=== PATIENT | female | born 1980 | race African-American/Black ===

== ENCOUNTER 2017-03-26 17:25 | Inpatient (IN) | payer SELFPAY ==
[~2017-03-26] VITALS: Ht 160 cm; Wt 62.1 kg
[~2017-03-26 17:25] MED LIST: NO MEDS
[2017-03-26] MEDS ORDERED: ONDANSETRON HCL 4MG/2ML VIAL IV STA (17:53)
[2017-03-26] MEDS ORDERED: MORPHINE SULFATE 4 MG/ML CPJ (NOT FOR IM USE) IV STA (17:53)
[2017-03-26] MEDS ORDERED: SODIUM CHLORIDE 0.9% 1,000 ML IV ONE ×2 (17:53→19:31)
[2017-03-26 18:23] LABS: BASOPHILS % 0.3 % (0.0-2.0); EOSINOPHILS % 0.6 % (0.0-5.0); HEMATOCRIT. 42.8 % (36.0-48.0); HEMOGLOBIN. 14.4 g/dL (12.0-16.0); LYMPHOCYTES % 8.9 % (20.0-50.0); MEAN CORPUSCULAR HEMOGLOBIN 31.2 pg (28.0-32.0); MEAN CORPUSCULAR VOLUME 92.7 fL (81.0-99.0); MEAN PLATELET VOLUME 9.2 fl (7.4-10.4); MONOCYTES % 7.4 % (2.0-8.0); NEUTROPHILS % 82.8 % (40.0-76.0); PLATELET 253 x1000/uL (130-400); RED BLOOD CELL COUNT 4.62 mill/uL (4.2-5.4); RED CELL DISTRIBUTION WIDTH 15.4 % (11.6-14.6)
[2017-03-26 18:28] LABS: HCG SCREEN NEGATIVE
[2017-03-26 18:29] LABS: PROTHROMBIN TIME 10.5 sec
[2017-03-26 18:30] LABS: CARBON DIOXIDE 25 mEq/L (21-32); CHLORIDE 104 mEq/L (98-107); ETHANOL BLOOD 20 mg/dL
[2017-03-26] MEDS ORDERED: AZITHROMYCIN 500 MG TABLET PO ONE (19:45)
[2017-03-26] MEDS ORDERED: CEFTRIAXONE SODIUM 250 MG/VIAL IM ONE (19:45)
[2017-03-26] MEDS ORDERED: CEFOXITIN SODIUM 2 G in DEXT 5% WATER 100 ML IV SCH (20:00)
[2017-03-26] MEDS ORDERED: [UNRECOGNIZED DRUG - OTHER] IR NR (20:00)
[2017-03-26] MEDS ORDERED: DOXYCYCLINE 100 MG in DEXT 5% WATER 100 ML IV SCH (20:00)
[2017-03-26] MEDS ORDERED: WATER IR NR (20:00)
[2017-03-26] MEDS ORDERED: STERILE WATER FOR INJECTION 10ML VIAL ONE (20:10)
[2017-03-26] MEDS ORDERED: MORPHINE SULFATE 4 MG/ML CPJ (NOT FOR IM USE) IV ONE (21:30)
[2017-03-26] MEDS ORDERED: ACETAMINOPHEN 325MG TABLET PO PRN (23:30)
[2017-03-26] MEDS ORDERED: HYDROCODONE/ACETAMINOPHEN 5/325MG TABLET PO PRN (23:30)
[2017-03-26 23:52] LABS: CLARITY URINE CLEAR (CLEAR); COLOR URINE YELLOW (YELLOW); GLUCOSE URINE NEGATIVE (NEGATIVE); KETONES URINE TRACE (NEGATIVE); LEUKOCYTE ESTERASE URINE TRACE (NEGATIVE); NITRITE URINE NEGATIVE (NEGATIVE); OCCULT BLOOD URINE NEGATIVE (NEGATIVE); PROTEIN URINE NEGATIVE (NEGATIVE); UROBILINOGEN URINE 0.2 E.U./dL (0.2-1.0)
[2017-03-27 00:02] VITALS: BP 122/73
[2017-03-27 00:09] LABS: *BENZODIAZEPINES SCREEN URINE NEGATIVE (NEGATIVE); METHADONE URINE SCREEN NEGATIVE (NEGATIVE); PHENCYCLIDINE URINE SCREEN NEGATIVE (NEGATIVE)
[2017-03-27 01:32] LABS: *AMPHETAMINES SCREEN URINE PRESUMTIVE POSITIVE (NEGATIVE); *BARBITURATES SCREEN URINE PRESUMTIVE POSITIVE (NEGATIVE); *COCAINE SCREEN URINE PRESUMTIVE POSITIVE (NEGATIVE); CANNABINOID URINE SCREEN PRESUMTIVE POSITIVE (NEGATIVE); OPIATES URINE SCREEN PRESUMTIVE POSITIVE (NEGATIVE)
[2017-03-27 04:00] VITALS: BP 125/65
[2017-03-27 06:25] LABS: HEMATOCRIT. 37.3 % (36.0-48.0); HEMOGLOBIN. 12.6 g/dL (12.0-16.0); MEAN CORPUSCULAR HEMOGLOBIN 30.8 pg (28.0-32.0); MEAN CORPUSCULAR VOLUME 91.2 fL (81.0-99.0); MEAN PLATELET VOLUME 7.7 fl (7.4-10.4); PLATELET 182 x1000/uL (130-400); RED BLOOD CELL COUNT 4.09 mill/uL (4.2-5.4); RED CELL DISTRIBUTION WIDTH 15.2 % (11.6-14.6)
[2017-03-27 07:45] LABS: PLATELET ESTIMATE NORMAL
[2017-03-27 08:00] VITALS: BP 145/92
[2017-03-27] MEDS: ONDANSETRON HCL 4MG/2ML VIAL IV PRN ×2 (08:26→13:23)
[2017-03-27] MEDS: IBUPROFEN 600MG TABLET PO SCH ×2 (08:26→13:24)
[2017-03-27] MEDS ORDERED: DOXYCYCLINE 100MG in DEXTROSE 5% WATER 100ML IV SCH (09:00)
[2017-03-27 12:00] VITALS: BP 128/88
[2017-03-27 16:00] VITALS: BP 121/78
[2017-03-30 09:07] LABS: CHLAMYDIA TRACHOMATIS NAA Negative (Negative)
[2017-03-31 04:15] LABS: NEISSERIA GONORRHOEAE NAA Positive (Negative)
== END 2017-03-27 17:30 | disposition left against medical advice (07) | DRG 531 ==
LOC: ER 17:26 → 6WST 22:13
PROVIDERS: ADMIT Specialist; ATTEND Specialist
DX: N70.93 Salpingitis and oophoritis, unspecified (principal); F17.200 Nicotine dependence, unspecified, uncomplicated; N73.9 Female pelvic inflammatory disease, unspecified; N70.11 Chronic salpingitis; N89.8 Other specified noninflammatory disorders of vagina; Z53.21 Procedure and treatment not carried out due to patient leaving prior to being seen by health care provider
CPT/HCPCS: 36415; 71010; 74176; 76856; 80053; 80305; 81001; 83605; 83690; 84703; 85025; 85610; 86850; 86900; 87040; 87070; 87077; 87186; 87210; 87491; 87591; 96365; 96375; 96376; 99285; A4216; G0482; J0694; J0696; J2270; J2405; J3490; J7030; J7040; J7060

== ENCOUNTER 2025-08-28 14:34 | Emergency (ER) | payer MEDICAID ==
[~2025-08-28] VITALS: Ht 160 cm; Wt 47.0 kg
[2025-08-28 14:51] VITALS: O2SAT 100
[2025-08-28] MEDS: TETANUS, DIPHTHERIA, PERTUSSIS VAC/PF 0.5ML (>10YR OLD) IM ONE (16:00)
[2025-08-28] MEDS: ACETAMINOPHEN 325MG TABLET PO ONE (16:00)
[2025-08-28] MEDS ORDERED: BO1 TP (16:05)
[2025-08-28] MEDS ORDERED: ACET-2708 MT (16:05)
[2025-08-28] MEDS ORDERED: AMOX1TAB16 MT (16:05)
[2025-08-28] MEDS: LIDOCAINE HCL 1% 20ML VIAL INFIL ONE (16:22)
[2025-08-28 17:08] VITALS: TEMP 37; O2SAT 100
[2025-08-28 17:13] VITALS: BP 117/89; PULSE 90; RESP 16
[2025-08-28] MEDS: HYDROCODONE/ACETAMINOPHEN 5/325MG TABLET PO ONE (17:13)
== END 2025-08-28 17:20 | disposition home or self-care (01) ==
LOC: ER 14:34
DX: S51.811A Laceration without foreign body of right forearm, initial encounter (principal); I10 Essential (primary) hypertension; W54.0XXA Bitten by dog, initial encounter; Y93.89 Activity, other specified; Y92.89 Other specified places as the place of occurrence of the external cause; Y99.8 Other external cause status
CPT/HCPCS: 99283; 73090; 90715; 12004; 90471; J2003; 12001